=== PATIENT | male | born 1990 | race American Indian/Alaskan Native ===

== ENCOUNTER 2021-12-29 14:33 | Emergency (ER) | payer MEDICAID ==
[2021-12-29 14:40] VITALS: BP 103/68
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
== END 2021-12-29 18:28 | disposition home or self-care (01) ==
LOC: ED 14:33
DX: G89.29 Other chronic pain (principal); F19.20 Other psychoactive substance dependence, uncomplicated
CPT/HCPCS: 99283